=== PATIENT | female | born 2000 | race Asian ===

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

== ENCOUNTER 2019-02-23 09:10 | Emergency (ER) | payer OTHER, SELFPAY ==
[2019-02-23 09:11] VITALS: BP 112/71; PULSE 93; RESP 16; TEMP 37.1; O2SAT 96; BMI 22.8
--- NOTE | 2019-02-23 09:27 | CT_ITS ---
STUDY: CT ABDOMEN AND PELVIS WITH CONTRAST REASON FOR EXAM: Female, 18 years old. Abdominal pain, diarrhea. RADIATION DOSAGE (If Supplied By Facility): CTDIvol = ( 10.17 ) mGy, DLP = ( 509.38 ) mGycm TECHNIQUE: Transaxial images were obtained from the dome of the diaphragm to the symphysis pubis with oral contrast. 100 IV/Oral Isovue 300 was administered. Sagittal and coronal images were reconstructed. Individualized dose optimization techniques were used for this CT. COMPARISON: None. FINDINGS: The visualized lung bases are unremarkable. The visualized portions of the heart are within normal limits. Normal liver. Normal gallbladder and extrahepatic biliary system. Normal spleen. Normal pancreas. Normal bilateral adrenal glands. Normal right kidney. Normal left kidney. Normal visualized stomach. Normal small intestine. Normal colon. The appendix is visualized and appears normal. Several prominent mesenteric lymph nodes in the right lower quadrant adjacent to the cecum suggestive of mesenteric adenitis. Normal abdominal aorta. Normal inferior vena cava. Normal retroperitoneum. Normal urinary bladder. Normal abdominal wall. Normal osseous structures. CT/Abdomen/Pelvis WITH Contrast IMPRESSION: Suspect mesenteric adenitis normal appendix. Electronically Signed: Robe Wagner MD at 12:25 EDT Tel , Service support ,
--- NOTE | 2019-02-23 09:28 | ED.VISSUMM ---
- ER Visit Summary Date of Service: 02/23/19 Chief Complaint: Abdominal pain History of Present Illness: The patient is a 18 F who presents with abdominal pain for the past 2 weeks. Patient states the pain has been constant but waxing and waning over the past 2 weeks. Patient describes the pain as aching. Patient states the pain is over the periumbilical area. Patient denies any nausea or vomiting. Patient does admit to decreased appetite. Patient states she is also had loose diarrhea over the past 2 weeks. Patient denies any dysuria or hematuria. Patient states her last menstrual period was 3 weeks ago. Patient admits to a fever of 101.8 last night. Physical Examination: Vital signs are stable. Patient is afebrile here. Patient is in no acute distress. Oral mucosa is pink and moist. Neck is supple. Trachea is midline. There is no JVD noted. Heart was regular rate and rhythm. Lungs are clear and equal bilaterally. Abdomen is soft. Bowel sounds are normal. There is lower abdominal tenderness, worse on the right. There is a positive Rovsing sign. There is no rebound or guarding noted. Cranial nerves II through XII are intact. There are no focal motor or sensory deficits noted. Test Results: CBC was normal. Basic metabolic profile showed a mild hypokalemia of 3.1. Urinalysis was normal. hCG was negative. CT scan of the abdomen and pelvis was obtained. The appendix was visualized and was normal. There is some mesenteric adenitis noted. Emergency Department Course and Treatment: Patient was given Zofran and IV fluids here. Patient was advised of her lab and CT results. Patient was instructed to follow-up with her primary care physician in 5 to 7 days. Patient understood and was agreeable with the plan patient was instructed return if worse in any way. All questions were answered. Disposition: Discharge home Impression: Mesenteric adenitis This note was generated with [employer] dictation software. It may contain incorrect words, spelling, and punctuation that were not noted in review of the chart prior to signing ED Disposition - Plan for ED Patient: Disposition: Home or Assisted Living Diagnosis: Mesenteric adenitis Instructions: Adenitis, Mesenteric Referrals: Care Physician,No Primary [Primary Care Provider] - 5-7 Days
[2019-02-23 09:51] LABS: Absolute Lymphocyte Count 1.54 X10^3/uL (0.83-4.51); Absolute Neutrophil Count 6.5 X10^3/uL (2.0-7.7); Basophil# 0.01 X10^3/uL; Basophil% 0.1 % (0-1); Eosinophil# 0.05 X10^3/uL; Eosinophils% 0.6 % (0-5); Hematocrit 45.5 % (37-47); Hemoglobin 15.2 g/dL (12.0-15.0); Lymphocyte # 1.54 X10^3/ul (4.0); Lymphocyte % 17.5 % (19-41); Mean Corp Hgb Conc 33.4 g/dL (32-36); Mean Corpuscular Hgb 30.9 pg (27.0-32.0); Mean Corpuscular Volume 92.5 fL (81-99); Mean Platelet Vol. 9.2 fl (6.2-12.0); Monocyte# 0.72 X10^3/uL; Monocyte% 8.2 % (0-10); NRBC Flagged by Analyzer 0 % (0-5); Neutrophil # 6.45 X10^3/uL (2.7-7.7); Neutrophil % 73.3 % (47-70); Platelet Count 196 K/mm3 (150-450); RBC Distribution Width CV 12.6 % (11.6-14.6); RBC Distribution Width SD 42.9 fl (35.1-43.9); Red Blood Count 4.92 M/mm3 (4.2-5.4); White Blood Count 8.8 K/mm3 (4.4-11.0)
[2019-02-23 10:04] LABS: Internal QC Validated? YES +Cl - CLEAR BKGD; Pregnancy, Serum, hCG Quali. NEGATIVE Negative
[2019-02-23] MEDS: Ondansetron 4 MG/2 ML Vial IV (10:07)
[2019-02-23 10:11] LABS: AST(SGOT) 17 U/L (15-37); Alanine Aminotransfer ALT/SGPT 18 U/L (13-56); Albumin, Serum 4.5 g/dL (3.2-5.0); Alkaline Phosphatase 71 U/L (45-117); Anion Gap 7 (5-15); BUN 8 mg/dL (7-18); BUN/Creat Ratio 9.5 RATIO (10-20); Calcium,Total 9.1 mg/dL (8.5-10.1); Chloride 106 mmol/L (98-107); Creatinine, Serum 0.85 mg/dL (0.55-1.02); EST Glomerular Filtration Rate 91 mL/min (>60); Est Glom Filt Rate - Afr Amer 110 mL/min (>60); Estimated Creatinine Clearance 91.93 ml/min; Globulin 4.5 g/dL (2.2-4.2); Glucose 88 mg/dL (74-106); Lipase 69 U/L (73-393); Potassium 3.1 mmol/L (3.5-5.1); Sodium Level 139 mmol/L (136-145)
[2019-02-23 10:29] VITALS: TEMP 38.7
[2019-02-23] MEDS: 0.9% Normal Saline 1,000 ML 1000 ML IV (10:35)
[2019-02-23 10:56] LABS: Bacteria 0 SEEN /hpf (None Seen); Mucous, Urine 0 SEEN /hpf (<or=2+); Red Blood Cells-Urine 0 SEEN /hpf (0-5); White Blood Cells 0 SEEN /hpf (0-5)
[2019-02-23 11:05] LABS: Color, Urine Yellow (Yellow); Glucose, Dipstick Normal (Normal); Ketone-Dipstick Negative (Negative); Leukocyte Esterase-Dipstick Negative /ul (Negative); Nitrite-Dipstick Negative (Negative); Occult Blood-Urine Negative /ul (Negative); Protein-Dipstick Negative (Negative); Urine Bilirubin Dipstick Negative (Negative); Urine Clarity Sl. Cloudy (Clear); Urine Urobilinogen Normal (Normal)
[2019-02-23 11:12] LABS: Squamous Epithelial Cells - UA 0-5 SEEN /hpf (5-10)
--- NOTE | 2019-02-23 11:27 | CM.ED ---
SOCIAL WORK INFORMANT: SELF REFERRAL REASON FOR REFERRAL: NO PRIMARY CARE MET WITH PATIENT IN ROOM. INTRODUCED ROLE AND REASON FOR REFERRAL. PATIENT STATES DOES NOT HAVE A PRIMARY CARE DOCTOR. LIST OF LOCAL PRIMARY CARE PHYSICIANS PROVIDED TO PATIENT AND FAMILY MEMBER IN ROOM. NO OTHER QUESTIONS OR CONCERNS AT THIS TIME. MUNA AZUL, ELECTRICAL TECHNICIAN INSTRUCTOR, COMPLEX CASE MANAGER.
[2019-02-23 11:35] VITALS: BP 121/71; PULSE 84; RESP 12; TEMP 38.2; O2SAT 100
[2019-02-23 13:36] VITALS: BP 118/80; PULSE 91; RESP 18; TEMP 38.3; O2SAT 97
== END 2019-02-23 13:39 | disposition home or self-care (01) ==
PROVIDERS: Emergency Provider Emergency Medicine
DX: I88.0 Nonspecific mesenteric lymphadenitis (principal)
CPT/HCPCS: 74177; 80053; 81001; 83690; 84703; 85025; 96361; 96374; 99283; J7030; Q9967; A4216; J2405

== ENCOUNTER 2022-09-23 21:36 | Emergency (ER) | payer OTHER, SELFPAY ==
[2022-09-23 21:36] VITALS: BP 112/70; PULSE 122; RESP 18; TEMP 36.8; O2SAT 95; BMI 24.2
--- NOTE | 2022-09-23 21:56 | EX.ED.DYSGE1 ---
HPI History of Present Illness Chief Complaint: Fever Detail of Chief Complaint: Fever Informant: patient Narrative Narrative: Presents to the emergency department with complaint of a fever that started this morning around noon. Patient states that about half an hour ago her temperature was as high as 104.7. Patient took Tylenol before coming in. Patient only other complaint of some mild low back pain. She denies abdominal pain. She has had no vomiting or diarrhea. She denies sore throat or cough. She denies ear pain. Patient denies sick contacts. [facility] Home Medications NK 07/23/18 [History Last Taken Unknown] Allergy/AdvReac Type Severity Reaction Status Date / Time Environmental Allergies: AdvReac Rash Verified 04/12/22 14:32 Uncoded [dust] Social History Smoking Status: Never smoker ROS ROS ED Review of Systems ROS Unobtainable: other Constitutional Constitutional ED: Reports fever(s) and lethargy; Denies chills, sweats or weight loss Eyes Eyes: Denies blurry vision, change in vision or diplopia ENT ENT ED: Denies rhinorrhea or sore throat Cardiovascular Cardiovascular: Denies chest pain, orthopnea or racing heartbeat Respiratory/Chest Respiratory/Chest: Denies cough, dyspnea, dyspnea on exertion, orthopnea or sputum Gastrointestinal Gastrointestinal: Denies abdominal pain, diarrhea, nausea or vomiting Genitourinary Genitourinary ED: Denies dysuria, hematuria or urinary frequency Musculoskeletal Musculoskeletal: Reports back pain; Denies arthralgias, myalgias or neck pain Integumentary Denies abscess, Abrasions or rash Neurologic Neurologic: Denies headache(s) or weakness Psychiatric Psychiatric: Denies anxiety, depression or suicidal thoughts Endocrine Endocrinology: Denies polydipsia, polyphagia or polyuria Hematologic/Lymphatic Hematologic/Lymphatic: Denies easy bleeding, easy bruising or lymphadenopathy Allergic/Immunologic Allergic/Immunologic ED: Denies mouth swelling, tongue swelling or urticaria EXAM Physical Exam Const Vital Signs: 09/23/22 21:36 09/23/22 22:14 Temperature 98.2 F Temperature Source Temporal Pulse Rate 122 H Respiratory Rate 18 Respiratory Effort Normal Respiratory Pattern Normal Blood Pressure 112/70 Blood Pressure Mean 84 Pulse Ox 95 Oxygen Delivery Method Room Air Positive well nourished and well developed General Appearance ED: well developed and NAD HEENT Reports TM's clear and moist mucous membranes normocephalic and atraumatic; Negative for trauma or tenderness Tympanic Membrane ED: Yes TM's clear Eyes PERRL and EOMs intact bilaterally General Eye ED: Negative for pale conjunctiva or scleral icterus Neck no lymphadenopathy, supple and no JVD General: Negative for tenderness Chest Wall inspection of chest normal and palpation of chest normal Chest: Negative for tenderness Resp normal respiratory effort and clear to auscultation bilaterally Effort and Inspection: Negative for respiratory distress or pain with movement Auscultation: Negative for rhonchi, wheezes or diminished lung sounds Cardio regular rate, regular rhythm, S1 normal heart sound, S2 normal heart sound and no murmurs Peripheral Pulses: pulses 2+ throughout GI normal to inspection, nondistended, normoactive bowel sounds, soft to palpation, non-tender, non-distended and no masses Back/Spine no CVA tenderness and no thoracic nor lumbar tenderness Extremity normal to inspection General Extremety ED: Negative for edema General Extremity: Negative for edema Neuro oriented x3, CN's II-XII intact bilaterally, no sensory deficits noted and gait normal Sensorium / Orientation: awake, alert, oriented to person, oriented to place and oriented to time Motor Exam: strength 5/5 throughout and strength abnormal Psych mental status grossly normal Skin no rashes or lesions noted and no wounds MDM MDM MDM Narrative Medical decision making narrative: Presents with fever that started today. She describes just some mild low back pain. No other symptoms. She was afebrile on arrival in the department. Patient had a urinalysis that was normal and COVID and rapid flu testing both were negative. Patient feels well otherwise no other symptoms. Etiology of her fever unclear although I suspect likely viral. Patient advised to return if other concerning symptoms. She is advised on treating temperature elevation with Motrin or Tylenol. Lab Data Labs: Laboratory Results - last 24 hr 09/23/22 22:12 Urine Color Yellow Urine Clarity Clear Urine pH 6.0 Ur Specific [place] 1.015 Urine Protein Negative Urine Glucose (UA) Normal Urine Ketones Negative Urine Occult Blood Negative Urine Nitrite Negative Urine Bilirubin Negative Urine Urobilinogen Normal Ur Leukocyte Esterase 25 H Urine RBC 0 SEEN Urine WBC 0-5 SEEN Ur Squamous Epith Cells 0-5 SEEN Urine Bacteria 0 SEEN Urine Mucus 0 SEEN Discharge Plan Triage Chief Complaint: Fever ED Provider: Joyce Knutson Dx/Rx/DC Orders Clinical Impression: Fever Instructions: ED FUO Adult Prescriptions: No Action NK Primary Care Provider: Care Physician,No Primary Referrals: Pollo Bahena MD [Med Staff - Active Staff] - 3-5 Days Care Physician,No Primary [Primary Care Provider] - Disposition Disposition: Home, Self Care
[2022-09-23 22:17] LABS: Bacteria 0 SEEN /hpf (None Seen); Mucous, Urine 0 SEEN /hpf (<or=2+); Red Blood Cells-Urine 0 SEEN /hpf (0-5)
[2022-09-23 22:19] LABS: Color, Urine Yellow (Yellow); Glucose, Dipstick Normal (Normal); Ketone-Dipstick Negative (Negative); Leukocyte Esterase-Dipstick 25 /ul (Negative); Nitrite-Dipstick Negative (Negative); Occult Blood-Urine Negative /ul (Negative); Protein-Dipstick Negative (Negative); Specific Gravity, Urine 1.015 (1.002-1.030); Urine Bilirubin Dipstick Negative (Negative); Urine Clarity Clear (Clear); Urine Urobilinogen Normal (Normal)
[2022-09-23 23:01] LABS: Squamous Epithelial Cells - UA 0-5 SEEN /hpf (5-10); White Blood Cells 0-5 SEEN /hpf (0-5)
[2022-09-24 00:05] VITALS: TEMP 36.8
== END 2022-09-24 00:05 | disposition home or self-care (01) ==
PROVIDERS: Emergency Provider Emergency Medicine; Visit Provider Emergency Medicine
DX: R50.9 Fever, unspecified (principal); M54.50 Low back pain, unspecified
CPT/HCPCS: 81001; 87428; 99282